=== PATIENT | male | born 1995 | race Caucasian/White ===

== ENCOUNTER 2022-01-24 18:42 | Emergency (ER) | payer OTHER ==
[~2022-01-24] VITALS: Ht 190.5 cm; Wt 106.6 kg
[2022-01-24] MEDS ORDERED: Norco 5-325 Ta1 EACH PO (22:14)
== END 2022-01-24 22:48 | disposition home or self-care (01) ==
LOC: ER 18:42
DX: S52.572A Other intraarticular fracture of lower end of left radius, initial encounter for closed fracture (principal); V86.56XA Driver of dirt bike or motor/cross bike injured in nontraffic accident, initial encounter
CPT/HCPCS: 25505; 73110; 96374; 96375; 96376; 99283-25; A9270; J1170; J2270; J2405; J3010

== ENCOUNTER 2022-01-29 14:09 | Day surgery (SDC) | payer OTHER ==
[~2022-01-29] VITALS: Ht 190.5 cm; Wt 106.8 kg
[~2022-01-29 14:09] MED LIST: Norco 5-325 Ta1 EACH PO
--- NOTE | 2022-01-29 16:41 | NUR ---
REPORT FROM ALEJO LOUIS. PT AXOX4, ABLE TO REPOSITION SELF IN BED AND AMBULATE WITH STEADY GAIT.
--- NOTE | 2022-01-29 20:09 | NUR ---
1919- SWITCHED TO STEPDOWN STATUS. AT BEDSIDE. LEFT HAND ELEVATED WITH SLING ON.GOOD CMS LEFT FINGERS. 2004- STATES PAIN IS MUCH MORE TOLERABLE AT 4/10. UP TO CHAIR W/O NAUSEA. IV DC'D WITH CATH INTACT.
== END 2022-01-29 23:03 | disposition home or self-care (01) ==
LOC: ORD 14:09 → ORSCMMR 14:09 → ORD 23:03
DX: S52.572A Other intraarticular fracture of lower end of left radius, initial encounter for closed fracture (principal); Z01.812 Encounter for preprocedural laboratory examination; Z01.818 Encounter for other preprocedural examination
CPT/HCPCS: 36415; 80048; 85025; A9270; C1713; J0690; J1100; J1885; J2250; J2405; J2704; J3010; J7120

== ENCOUNTER 2022-02-01 08:51 | Emergency (ER) | payer OTHER ==
[~2022-02-01] VITALS: Ht 190.5 cm; Wt 106.6 kg
[2022-02-01 10:40] LABS: BASOPHILS ABSOLUTE AUTO 0.08 K/mm3 (0.00-0.23); BASOPHILS PERCENT AUTO 1 % (0-2); EOSINOPHILS ABSOLUTE AUTO 0.16 K/mm3 (0.00-0.68); EOSINOPHILS PERCENT AUTO 2 % (0-6); Hematocrit 50.6 % (37.0-53.0); IMMATURE GRAN ABSOLUTE AUTO 0.06 K/mm3 (0.00-0.10); IMMATURE GRAN PERCENT AUTO 1 % (0-1); LYMPHOCYTES ABSOLUTE AUTO 2.38 K/mm3 (0.84-5.20); LYMPHOCYTES PERCENT AUTO 23 % (21-46); MONOCYTES ABSOLUTE AUTO 1.66 K/mm3 (0.16-1.47); MONOCYTES PERCENT AUTO 16 % (4-13); Mean Corpuscular HGB 31.3 pg (26.0-34.0); Mean Corpuscular HGB Conc 33.6 g/dL (31.5-36.5); Mean Corpuscular Volume 93 fL (80-100); Mean Platelet Volume 9.1 fL (9.1-12.4); NEUTROPHILS PERCENT AUTO 58 % (41-73); Platelet Count 274 K/mm3 (150-400); RDW Coefficient Variation 12.6 % (11.7-14.2); RDW Standard Deviation 43.5 fL (35.1-46.3); Red Blood Cell Count 5.43 M/mm3 (4.30-5.90); White Blood Cell Count 10.34 K/mm3 (4.00-11.30)
[2022-02-01 10:57] LABS: Albumin, Blood 4.1 g/dL (3.4-5.0); Albumin/Globulin Ratio 0.9 (0.8-1.8); Bilirubin, Total 0.6 mg/dL (0.1-1.0); Bun/Creatinine Ratio 19.4 (12.0-20.0); Calcium, Blood 9.8 mg/dL (8.5-10.1); Creatinine, Blood 0.93 mg/dL (0.60-1.20); Globulin, Blood 4.7 g/dL (2.2-4.0); Potassium, Blood 3.7 mmol/L (3.5-5.5); Total Protein, Blood 8.8 g/dL (6.4-8.2)
[2022-02-01] MEDS ORDERED: SULTRIDS PO (11:05)
[2022-02-01] MEDS ORDERED: Cleocin HCl150 MG PO (11:05)
== END 2022-02-01 11:32 | disposition home or self-care (01) ==
LOC: ER 08:51
PROVIDERS: Physician Assistant
DX: L03.114 Cellulitis of left upper limb (principal); U07.1 COVID-19
CPT/HCPCS: 36415; 80053; 85025; 85651; 86140; 96374; 99283-25; J0696

== ENCOUNTER 2023-01-16 06:22 | Day surgery (SDC) | payer OTHER ==
[~2023-01-16] VITALS: Ht 190.5 cm; Wt 111.1 kg
[2023-01-16] VITALS (20 sets, daily range): BP systolic 87–141; BP diastolic 54–91
[~2023-01-16 06:22] MED LIST changes: +Cleocin HCl150 MG PO; +SULTRIDS PO
[2023-01-16] MEDS ORDERED: OMEP20ER PO (07:13)
--- NOTE | 2023-01-16 07:34 | NUR ---
Ambulatory in Day Surgery. History, Chart, Medications and Allergies reviewed before start of procedure. Lungs clear T/O to Auscultation. Patient confirms NPO status and agrees with scheduled surgery. Pre-Op teaching done. Pt verbalizes understanding. Patient States Post-Procedure ride home has been arranged.
--- NOTE | 2023-01-16 08:25 | NUR ---
01/16/23 0825 Brooklyn Valles HISTORY, CHART, MEDICATIONS AND ALLERGIES REVIEWED BEFORE START OF PROCEDURE. PATIENT CONFIRMS NPO STATUS AND AGREES WITH SCHEDULED PROCEDURE. 3-LEAD EKG REVIEWED WITH PHYSICIAN PRIOR TO START OF PROCEDURE. MONITOR INTACT WITH CONTINUOUS PULSE OXIMETRY,CAPNOGRAPHY, 3-LEAD EKG, INTERMITTENT BP. SUPPLEMENTAL O2 TO BE TITRATED THROUGHOUT PROCEDURE TO MAINTAIN O2 SATURATION ABOVE 90%. PATIENT DETERMINED TO BE ASA APPROPRIATE FOR PROPOFOL SEDATION PRIOR TO START OF PROCEDURE BY
--- NOTE | 2023-01-16 09:05 | NUR ---
Patient up to Ambulate independently. Gait steady. Discharge instructions reviewed with patient. Patient verbalizes understanding. Copy given to patient to take home. Patient States Post-Procedure ride home has been arranged. Discharged via wheelchair to private car for ride home.
== END 2023-01-16 09:05 | disposition home or self-care (01) ==
LOC: ORSCMMR 06:22 → ORD 08:00 → ORSCMMR 09:05 → ORD 09:30 → ORSCSDS 02-06 13:45
PROVIDERS: Internal Medicine Gastroenterology
PROC: 0DB78ZX Excision of Stomach, Pylorus, Via Natural or Artificial Opening Endoscopic, Diagnostic (ICD-10-PCS; principal; 2023-01-16 08:00)
PROC: 0DB58ZX Excision of Esophagus, Via Natural or Artificial Opening Endoscopic, Diagnostic (ICD-10-PCS; principal; 2023-01-16 08:00)
DX: K21.9 Gastro-esophageal reflux disease without esophagitis (principal); R13.10 Dysphagia, unspecified; K20.0 Eosinophilic esophagitis; K29.70 Gastritis, unspecified, without bleeding; Z79.899 Other long term (current) drug therapy
CPT/HCPCS: 88305; 88342; J2704; J7120

== ENCOUNTER 2023-04-22 06:41 | Day surgery (SDC) | payer OTHER ==
[~2023-04-22] VITALS: Ht 190.5 cm; Wt 109.4 kg
[~2023-04-22 06:41] MED LIST changes: +OMEP20ER PO
[2023-04-22] MEDS ORDERED: OMEPRAZOLE (07:01)
[2023-04-22 08:50] VITALS: BP 120/88
== END 2023-04-22 08:50 | disposition home or self-care (01) ==
LOC: ORSCSDS 06:41
PROVIDERS: Internal Medicine Gastroenterology
PROC: 0DB58ZX Excision of Esophagus, Via Natural or Artificial Opening Endoscopic, Diagnostic (ICD-10-PCS; principal; 2023-04-22 08:00)
PROC: 0DB68ZX Excision of Stomach, Via Natural or Artificial Opening Endoscopic, Diagnostic (ICD-10-PCS; principal; 2023-04-22 08:00)
PROC: 0DB98ZX Excision of Duodenum, Via Natural or Artificial Opening Endoscopic, Diagnostic (ICD-10-PCS; principal; 2023-04-22 08:00)
DX: K20.0 Eosinophilic esophagitis (principal); R13.10 Dysphagia, unspecified
CPT/HCPCS: 88305; 88342; J2250; J2704; J7120